=== PATIENT | female | born 1990 | race Caucasian/White ===

== ENCOUNTER 2018-01-10 09:00 | Outpatient (RCR) | payer OTHER, SELFPAY ==
[2017-12-22 15:23] VITALS: BP 127/68; PULSE 69; RESP 16; TEMP 37.6; BMI 19.0
--- NOTE | 2017-12-22 16:35 | PCM.WC.HP ---
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 lower leg with fat layer exposed (2) Erythema nodosum Status: Suspected Current Visit: Yes Code(s): L52 - Erythema nodosum (3) Connective tissue disorder Status: Chronic Current Visit: Yes Code(s): M35.9 - Systemic involvement of connective tissue, unspecified (4) Cellulitis of left leg Status: Acute Current Visit: Yes Code(s): L03.116 - Cellulitis of left lower limb (5) Leg edema, left Status: Chronic Current Visit: Yes Code(s): R60.0 - Localized edema (6) Spider bite wound Status: Suspected Current Visit: Yes Code(s): T63.301A - Toxic effect of unspecified spider venom, accidental (unintentional), initial encounter History of Present Illness Date of Service: 12/24/17 Chief Complaint: left leg spider bite History of Wound: This 27 year old female presents to the wound care center for a left leg wound with an onset of within one week. She reports this occured over night and it is a 'spider bite'. She has redness, swelling, itching, and clear drainage. She denies trauma and did not see the actual spider. She relates this has happened to her one other time several years ago. She has treated this with antibiotic ointment and rest. She is seated most of the time at work. She denies other skin lesions. She has a h/o of connective tissue disorder and was treated about 10 years ago by a life science taxonomist in [place]. Past Medical History Past Medical History: Chronic Problems Connective tissue disorder (Chronic) Leg edema, left (Chronic) Past Medical History: connective tissue disorder, achalasia Surgical History: - - D&C, other abdominal surgery Allergies/Adverse Reactions: Allergies acetaminophen [From Vicodin] Allergy (Verified 02/09/16 15:08) Vomiting hydrocodone bitartrate [From Vicodin] Allergy (Verified 02/09/16 15:08) Vomiting Home Medications: Ambulatory Orders Medication Instructions Recorded Cyclobenzaprine [Flexeril] 10 mg PO TID PRN #20 tablet 02/09/16 Naproxen [Naprosyn] 500 mg PO BID #20 tablet 02/09/16 Oxycodone HCl/Acetaminophen 1 - 2 tablet PO Q4H PRN PRN #12 02/09/16 [Percocet 5/325] tablet Smoking Status: Current some day smoker Tobacco Use: Cigarettes Drugs: Marijuana - past Review of Systems Constitutional: Denies: Chills, Fever, Malaise, Weakness Cardiovascular: Denies: Chest Pain, Claudication, Chest Pressure Respiratory: Denies: Shortness of Breath Gastrointestinal: Denies: Constipation, Nausea, Vomiting Musculoskeletal: Reports: Leg Pain. Denies: Foot Pain Skin: Reports: Pruritis, Skin Changes, Wounds Neurological: Denies: Incoordination, Numbness, Tingling Hematologic/ Lymphatic: Reports: Petechiae - Physical Exam Vital Signs Temp Pulse Resp BP 99.7 F H 69 16 127/68 H 12/22/17 15:23 12/22/17 15:23 12/22/17 15:23 12/22/17 15:23 General: Alert, Oriented x3, Cooperative HEENT: Atraumatic Extremities: No cyanosis, Capillary Refill Less than 3 Seconds, No Calf Tenderness - negative heena and hernandez signs bilateral, Edema - mild left lower extremity, Peripheral Pulses Normal - 2/4 pt and dp pulses left lower extremity Skin: Ulcer/ Wound - no purulence, no proximal streaking, no odor. there is a central necrotic zone with peripehral raised vesicular lesions, erythema, and inflammation about 3 cm tequila center. the peripheral skin is atrophic without crepitus or bogginess or odor noted on palpation Wound Measurements and Assessment WC - Nurse 1 - General Ulcer Measurement Start: 12/22/17 15:22 Freq: Status: Active Protocol: Activity Type Activity Date Activity User E-Sign Co-Sign Detail Recorded Client Recorded Date Recorded By Document 12/22/17 15:23 DV [id number] 12/22/17 15:32 DV 12/22/17 15:23 Wound Center Nurse 1 [Ulcer Assessment] #1 LEFT PONCE -Combined with other wound No -Current Size (cm) - Length 1.5 -Current Size (cm) - Width 1.5 -Current Size (cm) - Depth 0.1 -Total Square Cm 2.25 -Photo Taken Yes -Epithelialization None Present -Tunneling No -Undermining/Tunneling No -Circular Undermining No -Classification - Thickness Full Thickness without Exposed Support Structure -Exudate Amt Small (1-33%) -Exudate Type Serosanguineous -Wound Margin Indistinct, Non -Visible -Granulation Amt None Present (0 %) -Granulation Quality N/A -Slough/Fibrin Yes -Necrosis Amt Large (67-100%) -Necrotic Tissue Type Adherent Slough -Structure Exposed None/Limited to Skin Breakdown -Texture (Tequila-wound Skin Appearance) Assessed Localized Edema Rash -Moisture (Tequila-wound Skin Appearance Assessed ) Weeping -Color (Tequila-wound Skin Appearance) Assessed Erythema Hemosiderin Staining -Temperature ([place]equila-wound Skin No Abnormality Appearance) (Pt Warm) -Ulcer Cleansing Wound Cleanser -Foul Odor after Cleansing No -Anesthetic Used 4% Lidocaine Solution [Edema Assessment] -Lower Limb Edema Present No -Left Calf (cm) 35.0 -Point of Measurement (cm from the 22.0 medial instep) Musculoskeletal: No Tenderness to Palpation of Joints or Extremities, No Muscle Wasting, - - compartment soft left lower extremity Neurological: Sensory exam intact to light touch and pain Psych/Mental Status: Normal Affect, Appropriate Debridement Note No debridement was completed today - punch biopsies were obtained today Assessment/Plan Active Problems Connective tissue disorder (Chronic) Cellulitis of left leg (Acute) Leg edema, left (Chronic) Ulcer of left lower extremity with fat layer exposed (Acute) Assessment: left leg wound. cellulitis versus other dermatologic/vasculitis/rheumatologic skin lesion. differential diagnoses include: erythema nodosum associated with sarcoidosis/thyroid disease, pretibial myxedema, arthropod/insect bite, other. mixed connective tissue disorder. mild leg edema. raynaud disease h/o. h/o nicotine use Plan: I reviewed and discussed her care plan. Verbal consent was obtained for punch biopsy. A 3 mm punch was sent to micro for MRSA PCR (negative) and the other results for aerobic, anearobic, acid fast , fungal are pending. The other 3 mm punch was sent to pathology for further evaluation. Labs were ordered and reviewed including no gross abnormalities with cbc (leukocytosis 6.0) or cmp (albumin 4.7 and protein 8.2). Her ESR was < 1 and c reactive protien was < 2.90. To control edema with tubigrip, elevation, and to avoid idle sitting or standing. To change dressing with hydrogel and adaptic; this was applied today. to avoid antibiotic ointment. I will request her PCP and rheumatology notes to better understand her medical history. A record request was sent. She is amendable to a new rheumatology referral locally in [place]. I answered her questions. To follow up at the wound healing center in one week. We reviewed the basics of wound care and wound healing today.
[2017-12-22 17:50] LABS: Absolute Lymphocyte Count 2.43 X10^3/ul (0.83-4.51); Absolute Neutrophil Count 2.8 X10^3/uL (2.0-7.7); Basophil# 0.01 X10^3/uL; Basophil% 0.2 % (0-1); Eosinophil# 0.34 X10^3/uL; Eosinophils% 5.7 % (0-5); Hematocrit 41.6 % (37-47); Hemoglobin 13.6 g/dl (12.0-15.0); Lymphocyte # 2.43 X10^3/ul (4.0); Lymphocyte % 40.8 % (19-41); Mean Corp Hgb Conc 32.7 g/gl (32-36); Mean Corpuscular Hgb 28.2 pg (27.0-32.0); Mean Corpuscular Volume 86.3 fL (81-99); Mean Platelet Vol. 11.3 fl (6.2-12.0); Monocyte# 0.38 X10^3/uL; Monocyte% 6.4 % (0-10); Neutrophil # 2.78 X10^3/uL (2.7-7.7); Neutrophil % 46.7 % (47-70); POSITIVE COUNT NO; POSITIVE DIFFERENTIAL NO; POSITIVE MORPHOLOGY NO; Platelet Count 194 K/mm3 (150-450); RBC Distribution Width CV 14.7 % (11.6-14.6); RBC Distribution Width SD 46.4 fl (35.1-43.9); Red Blood Count 4.82 M/mm3 (4.2-5.4)
[2017-12-22 18:06] LABS: Erythrocyte Sedimentation Rate < 1 mm/hr (0-20)
[2017-12-22 18:08] LABS: ALB/GLOB Ratio 1.3 RATIO (0.9-2.4); AST(SGOT) 17 U/L (15-37); Alanine Aminotransfer ALT/SGPT 18 U/L (13-56); Albumin, Serum 4.7 g/dL (3.2-5.0); Alkaline Phosphatase 57 U/L (45-117); Anion Gap 7 (5-15); BUN 8 mg/dL (7-18); BUN/Creat Ratio 12.3 RATIO (10-20); CRP < 2.90 mg/L (0.0-3.0); Calcium,Total 9.1 mg/dL (8.5-10.1); Chloride 107 mmol/L (98-107); Creatinine, Serum 0.65 mg/dL (0.55-1.02); EST Glomerular Filtration Rate 115 mL/min (>60); Est Glom Filt Rate - Afr Amer 139 mL/min (>60); Estimated Creatinine Clearance 115.34 ml/min; Globulin 3.5 g/dL (2.2-4.2); Glucose 77 mg/dL (74-106); Potassium 3.9 mmol/L (3.5-5.1); Protein, Total 8.2 g/dL (6.4-8.2); Sodium Level 141 mmol/L (136-145)
[2017-12-22 20:03] LABS: M R Staph aureus DNA By PCR Negative (Negative); Probe Check PASS; Specimen Processing Control PASS; Staph aureus DNA By PCR NEGATIVE (Negative)
--- NOTE | 2017-12-23 | LES_PTH ---
PATIENT: ADITYA SHANKAR LOC: U#:[id number] AGE/SX: 27/F ROOM: RE01/10/[address]: Dr. Melva Rogers DPM : 1990 BED: DIS: 01/11/2018 SPEC #: [id number] RECD: 12/25/17 10:40 STATUS: RICKY DEJESUS #: [id number] TIBURCIO: 12/23/17 00:[address]: Melva Rogers DEPT: SURGICAL PATHOLOGY RECD BY: Oj Alvarez ENTERED: 12/25/17 10:40 SP TYPE: Lesion OTHR DR: Out of Town Doctor Tissues: Skin of leg, NOS Procedures: Special Stain Group I Surgery Specimen Level IV GMS Stain (control) HEADER OPERATION: Punch biopsy left leg PRE-OP DIAGNOSIS: Left isaacs ulcer TISSUE SUBMITTED: Left leg MICROSCOPIC DIAGNOSIS Left leg, isaacs ulcer, punch biopsy: A piece of skin with extensive ulceration and associated acute inflammation. Special stain for fungi is negative for organisms; matched control is appropriate. Dermal perivascular chronic inflammation. Negative for malignancy. See microscopic description and comment. LETITIA:abdulaziz 12/26/17 COMMENT Correlation with clinical findings and appropriate follow up are necessary. MICROSCOPIC DESCRIPTION Slides are reviewed. The specimen shows punch biopsy of skin with most of the epidermis surface shows ulceration and associated acute inflammation and fibrinous exudation. The dermis shows perivascular chronic inflammatory cell infiltrates consisting predominantly of lymphocytes, eosinophils and a few plasma cells. A small piece of adipose tissue is also noted in the biopsy which also shows perivascular chronic inflammatory cell infiltrates similar to dermis. GROSS DESCRIPTION Received in fixative is one container labeled with the patient's name and designated punch biopsy left leg skin ulcer. The specimen consists of a punch biopsy of rios-white skin measuring 0.3 cm in diameter and 0.5 cm in length. The specimen is totally submitted in one cassette. / LETITIA:abdulaziz 12/25/17 TC:2 CPT: 32748, 96914
[2017-12-27 08:39] VITALS: BP 127/73; PULSE 69; RESP 18; TEMP 37.2; BMI 19.0
--- NOTE | 2017-12-27 09:14 | PN.PCM_ITS ---
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 lower leg with fat layer exposed (2) Erythema nodosum Status: Suspected Current Visit: Yes Code(s): L52 - Erythema nodosum (3) Connective tissue disorder Status: Chronic Current Visit: Yes Code(s): M35.9 - Systemic involvement of connective tissue, unspecified (4) Cellulitis of left leg Status: Acute Current Visit: Yes Code(s): L03.116 - Cellulitis of left lower limb (5) Leg edema, left Status: Chronic Current Visit: Yes Code(s): R60.0 - Localized edema (6) Spider bite wound Status: Suspected Current Visit: Yes Code(s): T63.301A - Toxic effect of unspecified spider venom, accidental (unintentional), initial encounter Type of Wound Date of Service: 12/27/17 Chief Complaint: left leg spider bite History of Wound: This 27 year old female presents to the wound care center for a left leg. She had a punch biopsy performed last week and is ready to discuss results. Her pain and swelling have decreased. She is continued peripheral itching. She denies fever, chill, nausea, vomiting. She has not been able to set up a rheumatology referral appointment yet. Progress of Wound: Stable - Physical Exam Vital Signs Temp Pulse Resp BP 98.9 F 69 18 127/73 H 12/27/17 08:39 12/27/17 08:39 12/27/17 08:39 12/27/17 08:39 General: Alert, Oriented x3, Cooperative HEENT: Atraumatic Extremities: No cyanosis, Capillary Refill Less than 3 Seconds, No Calf Tenderness - Negative Emigdio and Greene sign, Edema, Peripheral Pulses Normal Skin: Ulcer/ Wound - No purulence, streaking, no odor, no acute signs of infection. Peripheral erythema and inflammation is noted with induration of the skin. There is central devitalized tissue and granulation formation at the punch biopsy site, - - Her skin turgor is normal and there are no new wounds Wound Measurements and Assessment WC - Nurse 1 - General Ulcer Measurement Start: 12/22/17 15:22 Freq: Status: Active Protocol: Activity Type Activity Date Activity User E-Sign Co-Sign Detail Recorded Client Recorded Date Recorded By Document 12/27/17 08:39 RB [id number] 12/27/17 08:50 RB 12/27/17 08:39 Wound Center Nurse 1 [Ulcer Assessment] #1 LEFT PONCE -Combined with other wound No -Current Size (cm) - Length 0.2 -Current Size (cm) - Width 0.5 -Current Size (cm) - Depth 0.1 -Total Square Cm 0.10 -Epithelialization Small 1-33% -Tunneling No -Undermining/Tunneling No -Circular Undermining No -Classification - Thickness Full Thickness without Exposed Support Structure -Exudate Amt Small (1-33%) -Exudate Type Serosanguineous -Wound Margin Indistinct, Non -Visible -Granulation Amt Small (1-33%) -Granulation Quality Red -Slough/Fibrin Yes -Necrosis Amt Small (1-33%) -Necrotic Tissue Type Adherent Slough -Structure Exposed N/A -Texture (Ilda-wound Skin Appearance) Assessed Excoriation -Moisture (Ilda-wound Skin Appearance Assessed ) -Color (Ilda-wound Skin Appearance) Assessed Erythema -Temperature (Ilda-wound Skin No Abnormality Appearance) (Pt Warm) -Tenderness on Palpation (Ilda-wound No Skin Appearance) -Ulcer Cleansing Rinsed/ Irrigated with Saline -Foul Odor after Cleansing No -Anesthetic Used 5% Lidocaine Gel [Edema Assessment] -Lower Limb Edema Present Yes -Left Calf (cm) 35.0 -Left Ankle (cm) 21 WC - Nurse 2 - General Ulcer CM Notes Start: 12/22/17 15:22 Freq: Status: Active Protocol: Activity Type Activity Date Activity User E-Sign Co-Sign Detail Recorded Client Recorded Date Recorded By Document 12/27/17 09:05 [id number] 12/27/17 09:06 12/27/17 09:05 Wound Center Nurse 2 [Procedure/Treatment] #1 LEFT PONCE -Time 09:05 -Correct Patient Yes -Correct Side, Site, Position Yes -Correct Procedure Yes -Procedure Performed Yes -Type of Procedure Debridement -Clinical Debridement Subcutaneous -Post Debridement Size (cm) - Length 0.3 -Post Debridement Size (cm) - Width 0.5 -Post Debridement Size (cm) - Depth 0.1 -Total Square Cm 0.15 -Wound/Ulcer Outcome Not Healed -Ulcer Cleansing Rinsed/ Irrigated with Saline -Foul Odor after Cleansing No -Bioengineered Tissue No -Bleeding Controlled with Pressure -Treatment Response Procedure Tolerated Well [See Physician Procedure note for Specifics] Pain Scale: 0-10 Numeric [Pain] -Is Patient Pain Free? Yes Musculoskeletal: No Tenderness to Palpation of Joints or Extremities, Muscle Wasting, - - Compartments left lower extremity remain soft Neurological: Sensory exam intact to light touch and pain Psych/Mental Status: Normal Affect, Appropriate Debridement Note Post-Debridement Measurements/Treatment WC - Nurse 2 - General Ulcer CM Notes Start: 12/22/17 15:22 Freq: Status: Active Protocol: Activity Type Activity Date Activity User E-Sign Co-Sign Detail Recorded Client Recorded Date Recorded By Document 12/22/17 16:13 [id number] 12/22/17 16:46 Document 12/27/17 09:05 [id number] 12/27/17 09:06 12/22/17 12/27/17 16:13 09:05 Wound Center Nurse 2 #1 LEFT PONCE -Time 16:42 09:05 -Correct Patient Yes Yes -Correct Side, Site, Position Yes Yes -Correct Procedure Yes Yes -Procedure Performed Yes Yes -Type of Procedure Debridement Debridement -Clinical Debridement Subcutaneous Subcutaneous -Post Debridement Size (cm) - Length 1.6 0.3 -Post Debridement Size (cm) - Width 1.6 0.5 -Post Debridement Size (cm) - Depth 0.1 0.1 -Total Square Cm 2.56 0.15 -Wound/Ulcer Outcome Not Healed Not Healed -Ulcer Cleansing Rinsed/ Rinsed/ Irrigated with Irrigated with Saline Saline -Foul Odor after Cleansing No No -Bioengineered Tissue No No -Topical Lidocaine (%) 4 -Bleeding Controlled with Pressure Pressure -Treatment Response Procedure Procedure Tolerated Well Tolerated Well Pain Scale: 0-10 Numeric Is Patient Pain Free? Yes Yes Wound debrided: leg Laterality: Left Type of Debridement: Excisional debridement Anesthesia Used: 4% Lidocaine Solution Depth: in the subcutaneous layer Percentage of wound debrided: 100 Instrument Used: #15 blade Tissue Removed: fibrous, devitalized subcutaneous tissue, biofilm, slough Severity: Fat Layer Exposed Amount of bleeding with debridement: Mild Bleeding Controlled with: Pressure Patient tolerated procedure well Assessment/Plan Active Problems Connective tissue disorder (Chronic) Cellulitis of left leg (Acute) Leg edema, left (Chronic) Ulcer of left lower extremity with fat layer exposed (Acute) Assessment: left leg wound. cellulitis versus other dermatologic/vasculitis/ rheumatologic skin lesion. differential diagnoses include: erythema nodosum associated with sarcoidosis/thyroid disease, pretibial myxedema, arthropod/ insect bite, other. mixed connective tissue disorder. mild leg edema. raynaud disease h/o. h/o nicotine use Plan: I reviewed and discussed her care plan. Ulcer debridement was performed as noted in the clinical panel. Her punch biopsy results were reviewed. The pathology findings included inflamed ulcer without signs of malignancy. Her microbiology report did not demonstrate any organism growth. Labs were ordered and reviewed including no gross abnormalities with cbc (leukocytosis 6.0) or cmp (albumin 4.7 and protein 8.2). Her ESR was < 1 and c reactive protien was < 2.90. To control edema with tubigrip, elevation, and to avoid idle sitting or standing. To change dressing with hydrogel and adaptic; this was applied today. to avoid antibiotic ointment. To apply hydrocortisone cream around the periwound area. I have requested her PCP and rheumatology notes to better understand her medical history. These are not obtained yet and the office will be called. She is amendable to a new rheumatology referral locally in [place]. Her notes will be resent to Dr. [place]. I answered her questions. To follow up at the wound healing center in one week. We reviewed the basics of wound care and wound healing today.
[2018-01-03 09:01] VITALS: BP 114/78; PULSE 61; RESP 16; TEMP 36.9; BMI 19.0
--- NOTE | 2018-01-03 09:43 | PCM.WC.PN ---
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 lower leg with fat layer exposed (2) Erythema nodosum Status: Suspected Current Visit: Yes Code(s): L52 - Erythema nodosum (3) Connective tissue disorder Status: Chronic Current Visit: Yes Code(s): M35.9 - Systemic involvement of connective tissue, unspecified (4) Cellulitis of left leg Status: Acute Current Visit: Yes Code(s): L03.116 - Cellulitis of left lower limb (5) Leg edema, left Status: Chronic Current Visit: Yes Code(s): R60.0 - Localized edema (6) Spider bite wound Status: Suspected Current Visit: Yes Code(s): T63.301A - Toxic effect of unspecified spider venom, accidental (unintentional), initial encounter Type of Wound Date of Service: 01/03/18 Chief Complaint: left leg spider bite History of Wound: This 27 year old female presents to the wound care center for a left leg. Her pain and swelling have decreased. Her itching sensation has significantly decreased with application of hydrocortisone cream and light Benadryl use at bedtime. She denies fever, chill, nausea, vomiting. She has not been able to set up a rheumatology referral appointment yet. The referral information has been sent and she is awaiting a phone call. She has decreased drainage and redness. Progress of Wound: Improving - Physical Exam Vital Signs Temp Pulse Resp BP 98.4 F 61 16 114/78 01/03/18 09:01 01/03/18 09:01 01/03/18 09:01 01/03/18 09:01 General: Alert, Oriented x3, Cooperative HEENT: Atraumatic Extremities: No cyanosis, Capillary Refill Less than 3 Seconds, No Calf Tenderness - Negative Emigdio and Greene left, Diminished Peripheral Pulses, Edema - Decreased leg Skin: Ulcer/ Wound - No purulence, no erythema, skin, odor, no infection left Wound Measurements and Assessment WC - Nurse 1 - General Ulcer Measurement Start: 12/22/17 15:22 Freq: Status: Active Protocol: Activity Type Activity Date Activity User E-Sign Co-Sign Detail Recorded Client Recorded Date Recorded By Document 01/03/18 09:01 [id number] 01/03/18 09:12 01/03/18 09:01 Wound Center Nurse 1 [Ulcer Assessment] #1 LEFT PONCE -Combined with other wound No -Current Size (cm) - Length 0.3 -Current Size (cm) - Width 0.7 -Current Size (cm) - Depth 0.1 -Total Square Cm 0.21 -Photo Taken No -Epithelialization Small 1-33% -Tunneling No -Undermining/Tunneling No -Circular Undermining No -Exudate Amt Small (1-33%) -Exudate Type Serosanguineous -Wound Margin Flat & Intact -Granulation Amt None Present (0 %) -Slough/Fibrin Yes -Necrosis Amt Large (67-100%) -Necrotic Tissue Type Adherent Slough -Structure Exposed N/A -Texture (Ilda-wound Skin Appearance) Assessed Excoriation Localized Edema -Moisture (Ilda-wound Skin Appearance Assessed ) Dry/Scaly -Color (Ilda-wound Skin Appearance) Assessed -Temperature (Ilda-wound Skin No Abnormality Appearance) (Pt Warm) -Tenderness on Palpation (Ilda-wound No Skin Appearance) -Ulcer Cleansing Rinsed/ Irrigated with Saline -Foul Odor after Cleansing No -Anesthetic Used 4% Lidocaine Solution [Edema Assessment] -Lower Limb Edema Present Yes -Left Calf (cm) 32.6 -Left Ankle (cm) 21.0 WC - Nurse 2 - General Ulcer CM Notes Start: 12/22/17 15:22 Freq: Status: Active Protocol: Activity Type Activity Date Activity User E-Sign Co-Sign Detail Recorded Client Recorded Date Recorded By Document 01/03/18 09:25 [id number] 01/03/18 09:25 01/03/18 09:25 Wound Center Nurse 2 [Procedure/Treatment] #1 LEFT PONCE -Time 09:25 -Correct Patient Yes -Correct Side, Site, Position Yes -Correct Procedure Yes -Procedure Performed Yes -Type of Procedure Debridement -Clinical Debridement Subcutaneous -Post Debridement Size (cm) - Length 0.4 -Post Debridement Size (cm) - Width 0.7 -Post Debridement Size (cm) - Depth 0.1 -Total Square Cm 0.28 -Wound/Ulcer Outcome Not Healed -Ulcer Cleansing Rinsed/ Irrigated with Saline -Foul Odor after Cleansing No -Bioengineered Tissue No -Bleeding Controlled with Pressure -Treatment Response Procedure Tolerated Well [See Physician Procedure note for Specifics] Pain Scale: 0-10 Numeric [Pain] -Is Patient Pain Free? Yes Musculoskeletal: No Tenderness to Palpation of Joints or Extremities, Muscle Wasting Neurological: Sensory exam intact to light touch and pain Psych/Mental Status: Normal Affect, Appropriate Debridement Note Post-Debridement Measurements/Treatment WC - Nurse 2 - General Ulcer CM Notes Start: 12/22/17 15:22 Freq: Status: Active Protocol: Activity Type Activity Date Activity User E-Sign Co-Sign Detail Recorded Client Recorded Date Recorded By Document 12/22/17 16:13 TM [id number] 12/22/17 16:46 TM Document 12/27/17 09:05 JF [id number] 12/27/17 09:06 JF Document 01/03/18 09:25 [id number] 01/03/18 09:25 12/22/17 12/27/17 01/03/18 16:13 09:05 09:25 Wound Center Nurse 2 #1 LEFT PONCE -Time 16:42 09:05 09:25 -Correct Patient Yes Yes Yes -Correct Side, Site, Position Yes Yes Yes -Correct Procedure Yes Yes Yes -Procedure Performed Yes Yes Yes -Type of Procedure Debridement Debridement Debridement -Clinical Debridement Subcutaneous Subcutaneous Subcutaneous -Post Debridement Size (cm) - Length 1.6 0.3 0.4 -Post Debridement Size (cm) - Width 1.6 0.5 0.7 -Post Debridement Size (cm) - Depth 0.1 0.1 0.1 -Total Square Cm 2.56 0.15 0.28 -Wound/Ulcer Outcome Not Healed Not Healed Not Healed -Ulcer Cleansing Rinsed/ Rinsed/ Rinsed/ Irrigated with Irrigated with Irrigated with Saline Saline Saline -Foul Odor after Cleansing No No No -Bioengineered Tissue No No No -Topical Lidocaine (%) 4 -Bleeding Controlled with Pressure Pressure Pressure -Treatment Response Procedure Procedure Procedure Tolerated Well Tolerated Well Tolerated Well Pain Scale: 0-10 Numeric Is Patient Pain Free? Yes Yes Yes Wound debrided: leg Laterality: Left Type of Debridement: Excisional debridement Anesthesia Used: 5% Lidocaine Gel Depth: in the subcutaneous layer Percentage of wound debrided: 100 Instrument Used: #15 blade Tissue Removed: fibrous, devitalized subcutaneous, biofilm, slough Severity: Fat Layer Exposed Amount of bleeding with debridement: Mild Bleeding Controlled with: Pressure Patient tolerated procedure well Assessment/Plan Active Problems Connective tissue disorder (Chronic) Cellulitis of left leg (Acute) Leg edema, left (Chronic) Ulcer of left lower extremity with fat layer exposed (Acute) Assessment: left leg wound. cellulitis versus other dermatologic/vasculitis/rheumatologic skin lesion. differential diagnoses include: erythema nodosum associated with sarcoidosis/thyroid disease, pretibial myxedema, arthropod/insect bite, other. mixed connective tissue disorder. mild leg edema. raynaud disease h/o. h/o nicotine use Plan: I reviewed and discussed her care plan. Ulcer debridement was performed as noted in the clinical panel. Her punch biopsy results were reviewed as noted previously. The pathology findings included inflamed ulcer without signs of malignancy. Her microbiology report did not demonstrate any organism growth. Labs were ordered and reviewed including no gross abnormalities with cbc (leukocytosis 6.0) or cmp (albumin 4.7 and protein 8.2). Her ESR was < 1 and c reactive protien was < 2.90. To control edema with tubigrip, elevation, and to avoid idle sitting or standing. To change dressing with hydrogel and adaptic; this was applied today. to avoid antibiotic ointment. To apply hydrocortisone cream around the periwound area. I have requested her PCP and rheumatology notes to better understand her medical history. Her primary care physician notes were reviewed in detail. She does not recall her previous merchandising lead;s name that she saw at [facility]. These are not obtained yet and the office will be called. She is amendable to a new rheumatology referral locally in [place]. The referral has been sent to Dr. Birmingham. I answered her questions. To follow up at the wound healing center in one week. She is demonstrating significant improvement this past week. To continue nutritional supplementation, Ensure in addition to regular healthy balanced meals.
--- NOTE | 2018-01-03 09:47 | PN.PCM_ITS ---
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 lower leg with fat layer exposed (2) Erythema nodosum Status: Suspected Current Visit: Yes Code(s): L52 - Erythema nodosum (3) Connective tissue disorder Status: Chronic Current Visit: Yes Code(s): M35.9 - Systemic involvement of connective tissue, unspecified (4) Cellulitis of left leg Status: Acute Current Visit: Yes Code(s): L03.116 - Cellulitis of left lower limb (5) Leg edema, left Status: Chronic Current Visit: Yes Code(s): R60.0 - Localized edema (6) Spider bite wound Status: Suspected Current Visit: Yes Code(s): T63.301A - Toxic effect of unspecified spider venom, accidental (unintentional), initial encounter Type of Wound Date of Service: 01/03/18 Chief Complaint: left leg spider bite History of Wound: This 27 year old female presents to the wound care center for a left leg. Her pain and swelling have decreased. Her itching sensation has significantly decreased with application of hydrocortisone cream and light Benadryl use at bedtime. She denies fever, chill, nausea, vomiting. She has not been able to set up a rheumatology referral appointment yet. The referral information has been sent and she is awaiting a phone call. She has decreased drainage and redness. Progress of Wound: Improving - Physical Exam Vital Signs Temp Pulse Resp BP 98.4 F 61 16 114/78 01/03/18 09:01 01/03/18 09:01 01/03/18 09:01 01/03/18 09:01 General: Alert, Oriented x3, Cooperative HEENT: Atraumatic Extremities: No cyanosis, Capillary Refill Less than 3 Seconds, No Calf Tenderness - Negative Emigdio and Greene left, Diminished Peripheral Pulses, Edema - Decreased leg Skin: Ulcer/ Wound - No purulence, no erythema, skin, odor, no infection left Wound Measurements and Assessment WC - Nurse 1 - General Ulcer Measurement Start: 12/22/17 15:22 Freq: Status: Active Protocol: Activity Type Activity Date Activity User E-Sign Co-Sign Detail Recorded Client Recorded Date Recorded By Document 01/03/18 09:01 [id number] 01/03/18 09:12 01/03/18 09:01 Wound Center Nurse 1 [Ulcer Assessment] #1 LEFT PONCE -Combined with other wound No -Current Size (cm) - Length 0.3 -Current Size (cm) - Width 0.7 -Current Size (cm) - Depth 0.1 -Total Square Cm 0.21 -Photo Taken No -Epithelialization Small 1-33% -Tunneling No -Undermining/Tunneling No -Circular Undermining No -Exudate Amt Small (1-33%) -Exudate Type Serosanguineous -Wound Margin Flat & Intact -Granulation Amt None Present (0 %) -Slough/Fibrin Yes -Necrosis Amt Large (67-100%) -Necrotic Tissue Type Adherent Slough -Structure Exposed N/A -Texture (Ilda-wound Skin Appearance) Assessed Excoriation Localized Edema -Moisture (Ilda-wound Skin Appearance Assessed ) Dry/Scaly -Color (Ilda-wound Skin Appearance) Assessed -Temperature (Ilda-wound Skin No Abnormality Appearance) (Pt Warm) -Tenderness on Palpation (Ilda-wound No Skin Appearance) -Ulcer Cleansing Rinsed/ Irrigated with Saline -Foul Odor after Cleansing No -Anesthetic Used 4% Lidocaine Solution [Edema Assessment] -Lower Limb Edema Present Yes -Left Calf (cm) 32.6 -Left Ankle (cm) 21.0 WC - Nurse 2 - General Ulcer CM Notes Start: 12/22/17 15:22 Freq: Status: Active Protocol: Activity Type Activity Date Activity User E-Sign Co-Sign Detail Recorded Client Recorded Date Recorded By Document 01/03/18 09:25 [id number] 01/03/18 09:25 01/03/18 09:25 Wound Center Nurse 2 [Procedure/Treatment] #1 LEFT PONCE -Time 09:25 -Correct Patient Yes -Correct Side, Site, Position Yes -Correct Procedure Yes -Procedure Performed Yes -Type of Procedure Debridement -Clinical Debridement Subcutaneous -Post Debridement Size (cm) - Length 0.4 -Post Debridement Size (cm) - Width 0.7 -Post Debridement Size (cm) - Depth 0.1 -Total Square Cm 0.28 -Wound/Ulcer Outcome Not Healed -Ulcer Cleansing Rinsed/ Irrigated with Saline -Foul Odor after Cleansing No -Bioengineered Tissue No -Bleeding Controlled with Pressure -Treatment Response Procedure Tolerated Well [See Physician Procedure note for Specifics] Pain Scale: 0-10 Numeric [Pain] -Is Patient Pain Free? Yes Musculoskeletal: No Tenderness to Palpation of Joints or Extremities, Muscle Wasting Neurological: Sensory exam intact to light touch and pain Psych/Mental Status: Normal Affect, Appropriate Debridement Note Post-Debridement Measurements/Treatment WC - Nurse 2 - General Ulcer CM Notes Start: 12/22/17 15:22 Freq: Status: Active Protocol: Activity Type Activity Date Activity User E-Sign Co-Sign Detail Recorded Client Recorded Date Recorded By Document 12/22/17 16:13 TM [id number] 12/22/17 16:46 TM Document 12/27/17 09:05 JF [id number] 12/27/17 09:06 JF Document 01/03/18 09:25 [id number] 01/03/18 09:25 12/22/17 12/27/17 01/03/18 16:13 09:05 09:25 Wound Center Nurse 2 #1 LEFT PONCE -Time 16:42 09:05 09:25 -Correct Patient Yes Yes Yes -Correct Side, Site, Position Yes Yes Yes -Correct Procedure Yes Yes Yes -Procedure Performed Yes Yes Yes -Type of Procedure Debridement Debridement Debridement -Clinical Debridement Subcutaneous Subcutaneous Subcutaneous -Post Debridement Size (cm) - Length 1.6 0.3 0.4 -Post Debridement Size (cm) - Width 1.6 0.5 0.7 -Post Debridement Size (cm) - Depth 0.1 0.1 0.1 -Total Square Cm 2.56 0.15 0.28 -Wound/Ulcer Outcome Not Healed Not Healed Not Healed -Ulcer Cleansing Rinsed/ Rinsed/ Rinsed/ Irrigated with Irrigated with Irrigated with Saline Saline Saline -Foul Odor after Cleansing No No No -Bioengineered Tissue No No No -Topical Lidocaine (%) 4 -Bleeding Controlled with Pressure Pressure Pressure -Treatment Response Procedure Procedure Procedure Tolerated Well Tolerated Well Tolerated Well Pain Scale: 0-10 Numeric Is Patient Pain Free? Yes Yes Yes Wound debrided: leg Laterality: Left Type of Debridement: Excisional debridement Anesthesia Used: 5% Lidocaine Gel Depth: in the subcutaneous layer Percentage of wound debrided: 100 Instrument Used: #15 blade Tissue Removed: fibrous, devitalized subcutaneous, biofilm, slough Severity: Fat Layer Exposed Amount of bleeding with debridement: Mild Bleeding Controlled with: Pressure Patient tolerated procedure well Assessment/Plan Active Problems Connective tissue disorder (Chronic) Cellulitis of left leg (Acute) Leg edema, left (Chronic) Ulcer of left lower extremity with fat layer exposed (Acute) Assessment: left leg wound. cellulitis versus other dermatologic/vasculitis/ rheumatologic skin lesion. differential diagnoses include: erythema nodosum associated with sarcoidosis/thyroid disease, pretibial myxedema, arthropod/ insect bite, other. mixed connective tissue disorder. mild leg edema. raynaud disease h/o. h/o nicotine use Plan: I reviewed and discussed her care plan. Ulcer debridement was performed as noted in the clinical panel. Her punch biopsy results were reviewed as noted previously. The pathology findings included inflamed ulcer without signs of malignancy. Her microbiology report did not demonstrate any organism growth. Labs were ordered and reviewed including no gross abnormalities with cbc (leukocytosis 6.0) or cmp (albumin 4.7 and protein 8.2). Her ESR was < 1 and c reactive protien was < 2.90. To control edema with tubigrip, elevation, and to avoid idle sitting or standing. To change dressing with hydrogel and adaptic; this was applied today. to avoid antibiotic ointment. To apply hydrocortisone cream around the periwound area. I have requested her PCP and rheumatology notes to better understand her medical history. Her primary care physician notes were reviewed in detail. She does not recall her previous ingot header;s name that she saw at [facility]. These are not obtained yet and the office will be called. She is amendable to a new rheumatology referral locally in [place]. The referral has been sent to Dr. Birmingham. I answered her questions. To follow up at the wound healing center in one week. She is demonstrating significant improvement this past week. To continue nutritional supplementation, Ensure in addition to regular healthy balanced meals.
[2018-01-10 08:59] VITALS: BP 126/79; PULSE 58; RESP 18; TEMP 37.1; BMI 19.0
--- NOTE | 2018-01-10 10:13 | PCM.WC.PN ---
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 lower leg with fat layer exposed (2) Erythema nodosum Status: Suspected Current Visit: Yes Code(s): L52 - Erythema nodosum (3) Connective tissue disorder Status: Chronic Current Visit: Yes Code(s): M35.9 - Systemic involvement of connective tissue, unspecified (4) Cellulitis of left leg Status: Acute Current Visit: Yes Code(s): L03.116 - Cellulitis of left lower limb (5) Leg edema, left Status: Chronic Current Visit: Yes Code(s): R60.0 - Localized edema (6) Spider bite wound Status: Suspected Current Visit: Yes Code(s): T63.301A - Toxic effect of unspecified spider venom, accidental (unintentional), initial encounter Type of Wound Date of Service: 01/10/18 Chief Complaint: left leg spider bite History of Wound: This 27 year old female presents to the wound care center for a left leg. Her pain and swelling have decreased. Her itching sensation has significantly decreased with application of hydrocortisone cream and light Benadryl use at bedtime. She denies fever, chill, nausea, vomiting. She scheduled a rheumatology referral appointment for February 20, 2018. She reports significant improvement compared to last week. Progress of Wound: Improving - Physical Exam Vital Signs Temp Pulse Resp BP 98.8 F 58 L 18 126/79 H 01/10/18 08:59 01/10/18 08:59 01/10/18 08:59 01/10/18 08:59 General: Alert, Oriented x3, Cooperative Extremities: No cyanosis, Capillary Refill Less than 3 Seconds, No Calf Tenderness, Diminished Peripheral Pulses, Edema - Mild Skin: Ulcer/ Wound - No purulence, no erythema, streaking, no odor, no infection. Peripheral epithelialization is noted in the wound bed is granular and healthy Wound Measurements and Assessment WC - Nurse 1 - General Ulcer Measurement Start: 12/22/17 15:22 Freq: Status: Active Protocol: Activity Type Activity Date Activity User E-Sign Co-Sign Detail Recorded Client Recorded Date Recorded By Document 01/10/18 08:59 DL [id number] 01/10/18 09:06 DL 01/10/18 08:59 Wound Center Nurse 1 [Ulcer Assessment] #1 LEFT PONCE -Current Size (cm) - Length 0.2 -Current Size (cm) - Width 0.2 -Current Size (cm) - Depth 0.1 -Total Square Cm 0.04 -Photo Taken No -Exudate Amt None Present (0 %) -Wound Margin Flat & Intact -Granulation Amt Small (1-33%) -Granulation Quality [place] -Necrosis Amt Small (1-33%) -Necrotic Tissue Type Adherent Slough -Structure Exposed N/A -Texture (Ilda-wound Skin Appearance) Scarring -Moisture (Ilda-wound Skin Appearance No Abnormality ) -Color (Ilda-wound Skin Appearance) Rubor -Temperature (Ilda-wound Skin No Abnormality Appearance) (Pt Warm) -Ulcer Cleansing Rinsed/ Irrigated with Saline -Foul Odor after Cleansing No -Anesthetic Used 4% Lidocaine Solution [Edema Assessment] -Left Calf (cm) 31.4 -Left Ankle (cm) 20.4 WC - Nurse 2 - General Ulcer CM Notes Start: 12/22/17 15:22 Freq: Status: Active Protocol: Activity Type Activity Date Activity User E-Sign Co-Sign Detail Recorded Client Recorded Date Recorded By Document 01/10/18 09:35 [id number] 01/10/18 09:35 01/10/18 09:35 Wound Center Nurse 2 [Procedure/Treatment] #1 LEFT PONCE -Time 09:35 -Correct Patient Yes -Correct Side, Site, Position Yes -Correct Procedure Yes -Procedure Performed Yes -Type of Procedure Debridement -Clinical Debridement Subcutaneous -Post Debridement Size (cm) - Length 0.3 -Post Debridement Size (cm) - Width 0.2 -Post Debridement Size (cm) - Depth 0.1 -Total Square Cm 0.06 -Wound/Ulcer Outcome Not Healed -Ulcer Cleansing Rinsed/ Irrigated with Saline -Foul Odor after Cleansing No -Bioengineered Tissue No -Bleeding Controlled with Pressure -Treatment Response Procedure Tolerated Well [See Physician Procedure note for Specifics] Pain Scale: 0-10 Numeric [Pain] -Is Patient Pain Free? Yes Musculoskeletal: No Tenderness to Palpation of Joints or Extremities, No Muscle Wasting Neurological: Sensory exam intact to light touch and pain Psych/Mental Status: Normal Affect, Appropriate Debridement Note Post-Debridement Measurements/Treatment WC - Nurse 2 - General Ulcer CM Notes Start: 12/22/17 15:22 Freq: Status: Active Protocol: Activity Type Activity Date Activity User E-Sign Co-Sign Detail Recorded Client Recorded Date Recorded By Document 12/22/17 16:13 TM [id number] 12/22/17 16:46 Document 12/27/17 09:05 JF [id number] 12/27/17 09:06 JF Document 01/03/18 09:25 JF [id number] 01/03/18 09:25 JF Document 01/10/18 09:35 JF [id number] 01/10/18 09:35 12/22/17 12/27/17 01/03/18 16:13 09:05 09:25 Wound Center Nurse 2 #1 LEFT PONCE -Time 16:42 09:05 09:25 -Correct Patient Yes Yes Yes -Correct Side, Site, Position Yes Yes Yes -Correct Procedure Yes Yes Yes -Procedure Performed Yes Yes Yes -Type of Procedure Debridement Debridement Debridement -Clinical Debridement Subcutaneous Subcutaneous Subcutaneous -Post Debridement Size (cm) - Length 1.6 0.3 0.4 -Post Debridement Size (cm) - Width 1.6 0.5 0.7 -Post Debridement Size (cm) - Depth 0.1 0.1 0.1 -Total Square Cm 2.56 0.15 0.28 -Wound/Ulcer Outcome Not Healed Not Healed Not Healed -Ulcer Cleansing Rinsed/ Rinsed/ Rinsed/ Irrigated with Irrigated with Irrigated with Saline Saline Saline -Foul Odor after Cleansing No No No -Bioengineered Tissue No No No -Topical Lidocaine (%) 4 -Bleeding Controlled with Pressure Pressure Pressure -Treatment Response Procedure Procedure Procedure Tolerated Well Tolerated Well Tolerated Well Pain Scale: 0-10 Numeric Is Patient Pain Free? Yes Yes Yes 01/10/18 09:35 Wound Center Nurse 2 #1 LEFT PONCE -Time 09:35 -Correct Patient Yes -Correct Side, Site, Position Yes -Correct Procedure Yes -Procedure Performed Yes -Type of Procedure Debridement -Clinical Debridement Subcutaneous -Post Debridement Size (cm) - Length 0.3 -Post Debridement Size (cm) - Width 0.2 -Post Debridement Size (cm) - Depth 0.1 -Total Square Cm 0.06 -Wound/Ulcer Outcome Not Healed -Ulcer Cleansing Rinsed/ Irrigated with Saline -Foul Odor after Cleansing No -Bioengineered Tissue No -Topical Lidocaine (%) -Bleeding Controlled with Pressure -Treatment Response Procedure Tolerated Well Pain Scale: 0-10 Numeric Is Patient Pain Free? Yes Wound debrided: leg Laterality: Left Type of Debridement: Excisional debridement Anesthesia Used: 5% Lidocaine Gel Depth: in the subcutaneous layer Percentage of wound debrided: 100 Instrument Used: #15 blade Tissue Removed: fibrous, devitalized subcutaneous tissue, biofilm, slough Severity: Fat Layer Exposed Amount of bleeding with debridement: Mild Bleeding Controlled with: Pressure Patient tolerated procedure well Assessment/Plan Active Problems Connective tissue disorder (Chronic) Cellulitis of left leg (Acute) Leg edema, left (Chronic) Ulcer of left lower extremity with fat layer exposed (Acute) Assessment: left leg wound. cellulitis versus other dermatologic/vasculitis/rheumatologic skin lesion. differential diagnoses include: erythema nodosum associated with sarcoidosis/thyroid disease, pretibial myxedema, arthropod/insect bite, other. mixed connective tissue disorder. mild leg edema. raynaud disease h/o. h/o nicotine use Plan: I reviewed and discussed her care plan. Ulcer debridement was performed as noted in the clinical panel. Her punch biopsy results were reviewed as noted previously. The pathology findings included inflamed ulcer without signs of malignancy. Her microbiology report did not demonstrate any organism growth. Labs were ordered and reviewed including no gross abnormalities with cbc (leukocytosis 6.0) or cmp (albumin 4.7 and protein 8.2). Her ESR was < 1 and c reactive protien was < 2.90. To control edema with tubigrip, elevation, and to avoid idle sitting or standing. To change dressing with hydrogel and adaptic; this was applied today. I have requested her PCP notes and this was previously reviewed. I have also requested her previous rheumatology notes to better understand her medical history. Her primary care physician notes were reviewed in detail. She is amendable to a new rheumatology referral locally in [place] and is scheduled to see Dr. Birmingham on February 20. To follow up at the wound healing center in one week. She is demonstrating significant improvement this past week. To continue nutritional supplementation, Ensure in addition to regular healthy balanced meals.
--- NOTE | 2018-01-10 10:16 | PN.PCM_ITS ---
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 lower leg with fat layer exposed (2) Erythema nodosum Status: Suspected Current Visit: Yes Code(s): L52 - Erythema nodosum (3) Connective tissue disorder Status: Chronic Current Visit: Yes Code(s): M35.9 - Systemic involvement of connective tissue, unspecified (4) Cellulitis of left leg Status: Acute Current Visit: Yes Code(s): L03.116 - Cellulitis of left lower limb (5) Leg edema, left Status: Chronic Current Visit: Yes Code(s): R60.0 - Localized edema (6) Spider bite wound Status: Suspected Current Visit: Yes Code(s): T63.301A - Toxic effect of unspecified spider venom, accidental (unintentional), initial encounter Type of Wound Date of Service: 01/10/18 Chief Complaint: left leg spider bite History of Wound: This 27 year old female presents to the wound care center for a left leg. Her pain and swelling have decreased. Her itching sensation has significantly decreased with application of hydrocortisone cream and light Benadryl use at bedtime. She denies fever, chill, nausea, vomiting. She scheduled a rheumatology referral appointment for February 20, 2018. She reports significant improvement compared to last week. Progress of Wound: Improving - Physical Exam Vital Signs Temp Pulse Resp BP 98.8 F 58 L 18 126/79 H 01/10/18 08:59 01/10/18 08:59 01/10/18 08:59 01/10/18 08:59 General: Alert, Oriented x3, Cooperative Extremities: No cyanosis, Capillary Refill Less than 3 Seconds, No Calf Tenderness, Diminished Peripheral Pulses, Edema - Mild Skin: Ulcer/ Wound - No purulence, no erythema, streaking, no odor, no infection. Peripheral epithelialization is noted in the wound bed is granular and healthy Wound Measurements and Assessment WC - Nurse 1 - General Ulcer Measurement Start: 12/22/17 15:22 Freq: Status: Active Protocol: Activity Type Activity Date Activity User E-Sign Co-Sign Detail Recorded Client Recorded Date Recorded By Document 01/10/18 08:59 DL [id number] 01/10/18 09:06 DL 01/10/18 08:59 Wound Center Nurse 1 [Ulcer Assessment] #1 LEFT PONCE -Current Size (cm) - Length 0.2 -Current Size (cm) - Width 0.2 -Current Size (cm) - Depth 0.1 -Total Square Cm 0.04 -Photo Taken No -Exudate Amt None Present (0 %) -Wound Margin Flat & Intact -Granulation Amt Small (1-33%) -Granulation Quality [place] -Necrosis Amt Small (1-33%) -Necrotic Tissue Type Adherent Slough -Structure Exposed N/A -Texture (Ilda-wound Skin Appearance) Scarring -Moisture (Ilda-wound Skin Appearance No Abnormality ) -Color (Ilda-wound Skin Appearance) Rubor -Temperature (Ilda-wound Skin No Abnormality Appearance) (Pt Warm) -Ulcer Cleansing Rinsed/ Irrigated with Saline -Foul Odor after Cleansing No -Anesthetic Used 4% Lidocaine Solution [Edema Assessment] -Left Calf (cm) 31.4 -Left Ankle (cm) 20.4 WC - Nurse 2 - General Ulcer CM Notes Start: 12/22/17 15:22 Freq: Status: Active Protocol: Activity Type Activity Date Activity User E-Sign Co-Sign Detail Recorded Client Recorded Date Recorded By Document 01/10/18 09:35 [id number] 01/10/18 09:35 01/10/18 09:35 Wound Center Nurse 2 [Procedure/Treatment] #1 LEFT PONCE -Time 09:35 -Correct Patient Yes -Correct Side, Site, Position Yes -Correct Procedure Yes -Procedure Performed Yes -Type of Procedure Debridement -Clinical Debridement Subcutaneous -Post Debridement Size (cm) - Length 0.3 -Post Debridement Size (cm) - Width 0.2 -Post Debridement Size (cm) - Depth 0.1 -Total Square Cm 0.06 -Wound/Ulcer Outcome Not Healed -Ulcer Cleansing Rinsed/ Irrigated with Saline -Foul Odor after Cleansing No -Bioengineered Tissue No -Bleeding Controlled with Pressure -Treatment Response Procedure Tolerated Well [See Physician Procedure note for Specifics] Pain Scale: 0-10 Numeric [Pain] -Is Patient Pain Free? Yes Musculoskeletal: No Tenderness to Palpation of Joints or Extremities, No Muscle Wasting Neurological: Sensory exam intact to light touch and pain Psych/Mental Status: Normal Affect, Appropriate Debridement Note Post-Debridement Measurements/Treatment WC - Nurse 2 - General Ulcer CM Notes Start: 12/22/17 15:22 Freq: Status: Active Protocol: Activity Type Activity Date Activity User E-Sign Co-Sign Detail Recorded Client Recorded Date Recorded By Document 12/22/17 16:13 TM [id number] 12/22/17 16:46 Document 12/27/17 09:05 JF [id number] 12/27/17 09:06 JF Document 01/03/18 09:25 JF [id number] 01/03/18 09:25 JF Document 01/10/18 09:35 JF [id number] 01/10/18 09:35 12/22/17 12/27/17 01/03/18 16:13 09:05 09:25 Wound Center Nurse 2 #1 LEFT PONCE -Time 16:42 09:05 09:25 -Correct Patient Yes Yes Yes -Correct Side, Site, Position Yes Yes Yes -Correct Procedure Yes Yes Yes -Procedure Performed Yes Yes Yes -Type of Procedure Debridement Debridement Debridement -Clinical Debridement Subcutaneous Subcutaneous Subcutaneous -Post Debridement Size (cm) - Length 1.6 0.3 0.4 -Post Debridement Size (cm) - Width 1.6 0.5 0.7 -Post Debridement Size (cm) - Depth 0.1 0.1 0.1 -Total Square Cm 2.56 0.15 0.28 -Wound/Ulcer Outcome Not Healed Not Healed Not Healed -Ulcer Cleansing Rinsed/ Rinsed/ Rinsed/ Irrigated with Irrigated with Irrigated with Saline Saline Saline -Foul Odor after Cleansing No No No -Bioengineered Tissue No No No -Topical Lidocaine (%) 4 -Bleeding Controlled with Pressure Pressure Pressure -Treatment Response Procedure Procedure Procedure Tolerated Well Tolerated Well Tolerated Well Pain Scale: 0-10 Numeric Is Patient Pain Free? Yes Yes Yes 01/10/18 09:35 Wound Center Nurse 2 #1 LEFT PONCE -Time 09:35 -Correct Patient Yes -Correct Side, Site, Position Yes -Correct Procedure Yes -Procedure Performed Yes -Type of Procedure Debridement -Clinical Debridement Subcutaneous -Post Debridement Size (cm) - Length 0.3 -Post Debridement Size (cm) - Width 0.2 -Post Debridement Size (cm) - Depth 0.1 -Total Square Cm 0.06 -Wound/Ulcer Outcome Not Healed -Ulcer Cleansing Rinsed/ Irrigated with Saline -Foul Odor after Cleansing No -Bioengineered Tissue No -Topical Lidocaine (%) -Bleeding Controlled with Pressure -Treatment Response Procedure Tolerated Well Pain Scale: 0-10 Numeric Is Patient Pain Free? Yes Wound debrided: leg Laterality: Left Type of Debridement: Excisional debridement Anesthesia Used: 5% Lidocaine Gel Depth: in the subcutaneous layer Percentage of wound debrided: 100 Instrument Used: #15 blade Tissue Removed: fibrous, devitalized subcutaneous tissue, biofilm, slough Severity: Fat Layer Exposed Amount of bleeding with debridement: Mild Bleeding Controlled with: Pressure Patient tolerated procedure well Assessment/Plan Active Problems Connective tissue disorder (Chronic) Cellulitis of left leg (Acute) Leg edema, left (Chronic) Ulcer of left lower extremity with fat layer exposed (Acute) Assessment: left leg wound. cellulitis versus other dermatologic/vasculitis/ rheumatologic skin lesion. differential diagnoses include: erythema nodosum associated with sarcoidosis/thyroid disease, pretibial myxedema, arthropod/ insect bite, other. mixed connective tissue disorder. mild leg edema. raynaud disease h/o. h/o nicotine use Plan: I reviewed and discussed her care plan. Ulcer debridement was performed as noted in the clinical panel. Her punch biopsy results were reviewed as noted previously. The pathology findings included inflamed ulcer without signs of malignancy. Her microbiology report did not demonstrate any organism growth. Labs were ordered and reviewed including no gross abnormalities with cbc (leukocytosis 6.0) or cmp (albumin 4.7 and protein 8.2). Her ESR was < 1 and c reactive protien was < 2.90. To control edema with tubigrip, elevation, and to avoid idle sitting or standing. To change dressing with hydrogel and adaptic; this was applied today. I have requested her PCP notes and this was previously reviewed. I have also requested her previous rheumatology notes to better understand her medical history. Her primary care physician notes were reviewed in detail. She is amendable to a new rheumatology referral locally in [place] and is scheduled to see Dr. Birmingham on February 20. To follow up at the wound healing center in one week. She is demonstrating significant improvement this past week. To continue nutritional supplementation, Ensure in addition to regular healthy balanced meals.
== END 2018-01-11 23:59 ==
LOC: WC 09:00
PROVIDERS: Visit Provider Podiatrist
DX: L97.922 Non-pressure chronic ulcer of unspecified part of left lower leg with fat layer exposed (principal); T63.301A Toxic effect of unspecified spider venom, accidental (unintentional), initial encounter; L52 Erythema nodosum; M35.9 Systemic involvement of connective tissue, unspecified; L03.116 Cellulitis of left lower limb; R60.0 Localized edema; F17.200 Nicotine dependence, unspecified, uncomplicated
CPT/HCPCS: 11042; 11100; 80053; 85025; 85652; 86140; 87070; 87205; 87640; 88305; 88312; 99203; G0463

== ENCOUNTER 2018-01-17 15:59 | Outpatient (RCR) | payer OTHER, SELFPAY ==
[2018-01-12 01:12] VITALS: BP 126/79; PULSE 58; RESP 18; TEMP 37.1
== END 2018-02-10 23:59 ==
LOC: WC 15:59
PROVIDERS: Visit Provider Podiatrist
DX: L97.929 Non-pressure chronic ulcer of unspecified part of left lower leg with unspecified severity (principal); M35.9 Systemic involvement of connective tissue, unspecified
CPT/HCPCS: 99213; G0463

== ENCOUNTER → 2019-06-14 | Outpatient (CLI) | payer OTHER, SELFPAY ==
--- NOTE | 2019-06-14 09:03 | BI_ITS ---
MAMMOGRAPHY - BILATERAL DIAGNOSTIC REASON FOR EXAM: Female, 29 years old. Left breast lump. PERTINENT HISTORY: Grandmother with breast cancer. TECHNIQUE: Digital bilateral breast donna (3D mammographic acquisition) in the CC and MLO projections. 2-D mediolateral oblique (MLO) and craniocaudad (CC) views of both breasts were obtained. CAD: Full Field Digital Mammography with Computer Added Detection was performed. COMPARISON: None. Baseline examination. FINDINGS: Breast Composition: The breasts are extremely dense, which lowers the sensitivity of mammography. There are no dominant masses or suspicious calcifications. No other significant abnormalities are identified. BI/DIAG MAMM W/CAD, BILAT IMPRESSION: Negative diagnostic mammogram. With the patient's history of a palpable abnormality in the left breast, correlation with ultrasound is recommended. ASSESSMENT CATEGORY: BIRADS Category 0: Incomplete. Need additional imaging evaluation. A letter regarding these results will be sent to the patient by the facility within 30 days. Approximately 10% of breast cancers are not detected by mammography. A normal mammogram should not delay biopsy of a clinically suspicious abnormality. Electronically Signed: Tye Cortez, at 10:22 EDT , Service support ,
--- NOTE | 2019-06-14 09:03 | US_ITS ---
STUDY: ULTRASOUND BREAST - LEFT REASON FOR EXAM: Female, 29 years old. Palpable lump left breast. TECHNIQUE: Axial and longitudinal images of the LEFT breast were performed with a high resolution ultrasound transducer. COMPARISON: Comparison is made with prior mammogram done earlier in the day. FINDINGS: LEFT Breast: The periareolar region was examined by ultrasound. No sonographic abnormality is seen. US/Breast Limited Unilateral IMPRESSION: No sonographic abnormality. ASSESSMENT CATEGORY: BIRADS Category 1: Negative. A letter regarding these results will be sent to the patient by the facility within 30 days. Electronically Signed: Tye Cortez, at 15:14 EDT , Service support ,
== END | disposition home or self-care (01) ==
LOC: OPBI 08:58
DX: N63.22 Unspecified lump in the left breast, upper inner quadrant (principal); N64.4 Mastodynia
CPT/HCPCS: 76642; 77062; 77066; G0279